=== PATIENT | female | born 1995 | race Caucasian/White ===

== ENCOUNTER 2024-07-30 10:28 | Outpatient (CLI) | payer OTHER, SELFPAY ==
--- NOTE | ~2024-07-30 | US_ITS ---
EXAMINATION: US OB /maternal detail DATE: 07/30/2024 11:08 INDICATION: Encounter for screening. TECHNIQUE: Real-time ultrasound of the pelvis was performed. COMPARISON: None. FINDINGS: There is a single living fetus in vertex presentation. The placenta is posterior, 7.8 cm from the ce rvix. The cervical length is 4.1 cm on transabdominal images, which is normal.. heart rate is 1 42 beats per minute (bpm). The amniotic fluid volume is subjectively normal. The following biometric data were obtained: Biparietal diameter (BPD): 4.5 cm; head circumference (HC): 16.7 cm; abdominal circumference (AC): 13 .8 cm; femur length (FL): 2.9 cm. These measurements are concordant. Estimated weight is 275 g +/- 41 g, which correlates with the 36th percentile when 12/22/24 is us ed as estimated date of delivery. As single measurements, these parameters are each equal to the following estimated gestational ages: BPD: 19 weeks 5 days. HC: 19 weeks 3 days. AC: 19 weeks 2 days. FL: 18 weeks 6 days. estimated gestational age based solely on measurements from this exam is 19 weeks 2 days +/- 1 weeks 2 days. The cerebral ventricles, cerebellum, cisterna magna, nuchal fold, lip, and spine are normal. The hear t is normal. The diaphragm, stomach, kidneys, and bladder are normal. There are two umbilical arterie s to yield a 3-vessel cord. The cord insertion is normal. IMPRESSION: 1. Single living fetus in vertex presentation. 2. Estimated weight is 275 g +/- 41 g, which correlates with the 36th percentile when 12/22/24 i s used as estimated date of delivery. 3. Normal anatomic survey. Reviewed, dictated and finalized at location B. IMPRESSION: 1. Single living fetus in vertex presentation. 2. Estimated weight is 275 g +/- 41 g, which correlates with the 36th pe rcentile when 8/3/25 is used as estimated date of delivery. 3. Normal anatomic survey.
== END 2024-07-30 10:29 | disposition home or self-care (01) ==
LOC: MICIMG 10:29
PROVIDERS: PCP Obstetrics & Gynecology; Visit Provider Obstetrics & Gynecology
DX: Z36.9 Encounter for antenatal screening, unspecified (principal); Z3A.19 19 weeks gestation of pregnancy
CPT/HCPCS: 76805